=== PATIENT | male | born 1975 ===

== ENCOUNTER 2021-08-18 21:25 | Emergency (ER) | payer BC, OTHER ==
[2021-08-18] MEDS ORDERED: Alum Hydrox/Mag Hydrox/Simeth 30 ML, Lidocaine 2% 15 ML PO ONE ×2 (21:32)
[2021-08-18 22:40] LABS: CHLORIDE,CL 104 mEq/L (98-106); SODIUM,NA 143 mEq/L (136-145)
[2021-08-18] MEDS ORDERED: Pantoprazole 40 MG Tab.CR PO STA (22:48)
== END 2021-08-19 00:11 | disposition home or self-care (01) ==
LOC: CC.ED 21:25
DX: R07.9 Chest pain, unspecified (principal); R12 Heartburn
CPT/HCPCS: 36415; 71046; 80053; 84484; 85025; 86140; 93005; 99284; 99285-25; A9270-GY